=== PATIENT | male | born 1990 | race Caucasian/White ===

== ENCOUNTER 2023-09-23 08:45 | Outpatient (CLI) | payer OTHER, SELFPAY | END 2023-09-23 08:46 | disposition home or self-care (01) | PROVIDERS: PCP Internal Medicine; Visit Provider Internal Medicine | DX: Z00.00 Encounter for general adult medical examination without abnormal findings (principal); R53.83 Other fatigue | CPT/HCPCS: 80053; 80061; 84443 ==

== ENCOUNTER 2023-11-03 12:21 | Outpatient (CLI) | payer OTHER, SELFPAY | END 2023-11-03 12:22 | disposition home or self-care (01) | LOC: NFLDREF 12:21 | PROVIDERS: PCP Internal Medicine; Visit Provider Internal Medicine | DX: R53.83 Other fatigue (principal) | CPT/HCPCS: 84403 ==

== ENCOUNTER 2024-01-16 10:00 | Outpatient (RCR) | payer OTHER, SELFPAY | END 2024-05-15 23:59 | disposition home or self-care (01) | PROVIDERS: PCP Internal Medicine; Visit Provider Internal Medicine | DX: M54.9 Dorsalgia, unspecified (principal); M54.31 Sciatica, right side; Z51.89 Encounter for other specified aftercare | CPT/HCPCS: 97110; 97140; 97161; 97535 ==